=== PATIENT | female | born 1950 ===

== ENCOUNTER 2017-12-05 16:32 | Emergency (ER) | payer MEDICARE ==
[2017-12-05 16:33] VITALS: BMI 31.9
[2017-12-05 16:39] VITALS: BP 123/65; RESP 18; TEMP 98.7
[2017-12-05 17:25] LABS: BASO # 0.05 K/mm3 (0.0-2.0); BASO % 0.8 % (0.0-3.0); EOS # 0.2 (0.0-0.7); EOS % 3.9 % (1.5-5.0); GRAN # 3.02 (1.4-6.5); GRAN % 48.9 % (50.0-68.0); HEMOGLOBIN 12.9 g/dL (12.0-16.0); LYMPH # 2.4 (1.2-3.4); LYMPH % 38.6 % (22.0-35.0); MEAN CELL VOLUME 89.3 fl (80.0-105.0); MEAN CORPUSCULAR HEMOGLOBIN 29.9 pg (25.0-35.0); MEAN CORPUSCULAR HGB CONC 33.5 g/dl (31.0-37.0); MEAN PLATELET VOLUME 11.7 fl (7.0-11.0); MONO # 0.5 (0.1-0.6); MONO % 7.8 % (1.0-6.0); PH,URINE 6.5 (4.7-8.0); RBC 4.31 10^6/uL (3.5-6.1); RED CELL DISTRIBUTION WIDTH 14.3 % (11.5-14.5); URINE BILIRUBIN NEGATIVE (NEGATIVE); URINE BLOOD TRACE-INTACT (NEGATIVE); URINE GLUCOSE (UA) NEGATIVE (NEGATIVE); URINE LEUKOCYTE ESTERASE NEGATIVE Leu/uL (NEGATIVE); URINE PROTEIN NEGATIVE mg/dL (<30 mg/dL); WHITE BLOOD COUNT 6.2 10^3/ul (4.5-11.0)
[2017-12-05 17:27] LABS: URINE APPEARANCE CLEAR (CLEAR); URINE COLOR YELLOW (YELLOW)
[2017-12-05 17:33] LABS: ALB/GLOB RATIO 1.4 (1.1-1.8); ALBUMIN 4.2 g/dL (3.0-4.8); ALT/SGPT 29 U/L (7-56); AST/SGOT 28 U/L (14-36); BLOOD UREA NITROGEN 15 mg/dL (7-21); CALCIUM 8.9 mg/dL (8.4-10.5); GFR AFRICAN-AMERICAN > 60; GFR NON-AFRICAN AMERICAN > 60
[2017-12-05 18:05] LABS: URINE BACTERIA TRACE (NEG); URINE EPITHELIAL CELLS 0 - 2 /hpf (0-5); URINE RBC 0 - 2 /hpf (0-2); URINE WBC 0 - 2 /hpf (0-6)
--- NOTE | 2017-12-05 18:44 | CT ---
PROCEDURE: CT HEAD WITHOUT CONTRAST. HISTORY: headache COMPARISON: None available. TECHNIQUE: Axial computed tomography images were obtained through the head/brain without intravenous contrast. Radiation dose: Total exam DLP = 830.77 mGy-cm. This CT exam was performed using one or more of the following dose reduction techniques: Automated exposure control, adjustment of the mA and/or kV according to patient size, and/or use of iterative reconstruction technique. FINDINGS: HEMORRHAGE: No intracranial hemorrhage. BRAIN: No mass effect or edema. No atrophy or chronic microvascular ischemic changes. VENTRICLES: Unremarkable. No hydrocephalus. CALVARIUM: Unremarkable. PARANASAL SINUSES: Unremarkable as visualized. No significant inflammatory changes. MASTOID AIR CELLS: Unremarkable as visualized. No inflammatory changes. OTHER FINDINGS: None. IMPRESSION: No intracranial mass, hemorrhage or evidence of acute infarct. If
--- NOTE | 2017-12-05 18:56 | ED PDOC ---
Arrival/HPI - General Chief Complaint: Trauma Time Seen by Provider: 12/05/17 16:54 Historian: Patient - History of Present Illness Narrative History of Present Illness (Text): 12/05/17 18:43 67yr old female presents today with headache and feeling drowsy after head injury 2 days ago. pt states she Slipped and fell on water hitting her head 2 days ago. Patient states she was feeling fine at that time but then slowly developed headaches and states that she injured her left shoulder. Patient states she was in [place] so she did not go to the hospital. Patient states she returned yesterday and today she developed a feeling like if she wanted to sleep. Patient does state that she did take a muscle relaxer in the morning today because she was having pain in the left shoulder. Patient states she has a history of prior surgery in the left arm/shoulder and when she fell backwards she injured the shoulder and now is having difficulty lifting the shoulder up above her head. pt denies numbness weakness, tingling in the extremity. pt denies cp or sob. no fever/chills. no abdominal pain. pt denies back pain. no other complaints. Time/Duration: Other (2 days ago) Past Medical History - Provider Review Nursing Documentation Reviewed: Yes - Travel History Have you recently traveled outside [place] w/in the past 3 mons?: No - Infectious Disease Hx of Infectious Diseases: None - Tetanus Immunization Tetanus Immunization: Unknown - Cardiac Hx Cardiac Disorders: Yes Hx Hypertension: Yes - Pulmonary Hx Respiratory Disorders: No - Neurological Hx Neurological Disorder: No - HEENT Hx HEENT Disorder: No - Renal Hx Renal Disorder: No - Endocrine/Metabolic Hx Endocrine Disorders: No - Hematological/Oncological Hx Blood Disorders: No - Integumentary Hx Dermatological Disorder: No - Musculoskeletal/Rheumatological Hx Musculoskeletal Disorders: No - Gastrointestinal Hx Gastrointestinal Disorders: Yes Hx Gastrointestinal Ulcer: Yes - Genitourinary/Gynecological Hx Genitourinary Disorders: No - Psychiatric Hx Psychophysiologic Disorder: No Hx Depression: No Hx Emotional Abuse: No Hx Physical Abuse: No Hx Substance Use: No - Past Surgical History Past Surgical History: Non-Contributing - Surgical History Hx Appendectomy: Yes Hx Section: Yes Hx Tubal Ligation: Yes - Anesthesia Hx Anesthesia: No Hx Anesthesia Reactions: No Hx Malignant Hyperthermia: No - Suicidal Assessment Feels Threatened In Home Enviroment: No Family/Social History - Physician Review Nursing Documentation Reviewed: Yes Family/Social History: Unknown Family HX Smoking Status: Never Smoked Hx Alcohol Use: No Hx Substance Use: No Hx Substance Use Treatment: No Allergies/Home Meds Allergies/Adverse Reactions: Allergies Tetracyclines Allergy (Verified 04/19/16 01:30) RASH Home Medications: Home Meds Medication Instructions Recorded Confirmed Nebivolol [Bystolic] 10 mg PO DAILY 08/20/15 12/05/17 Cyclobenzaprine [Flexeril] 5 mg PO TID PRN 12/05/17 12/05/17 Hydrochlorothiazide [Microzide] 1 tab PO DAILY 12/05/17 12/05/17 Review of Systems - Review of Systems Constitutional: Fatigue. absent: Fevers ENT: absent: Sore Throat, Sinus Congestion Respiratory: absent: SOB, Cough Cardiovascular: absent: Chest Pain, Palpitations Gastrointestinal: absent: Abdominal Pain, Nausea, Vomiting Genitourinary Female: absent: Dysuria, Frequency, Hematuria Musculoskeletal: Arthralgias (left shoulder pain). absent: Back Pain, Neck Pain Skin: absent: Rash, Pruritis Neurological: Headache Psychiatric: absent: Anxiety, Depression Physical Exam Vital Signs Reviewed: Yes Vital Signs Temp Pulse Resp BP Pulse Ox 12/05/17 16:38 98.7 F 54 L 18 123/65 96 Temperature: Afebrile Blood Pressure: Normal Pulse: Regular Respiratory Rate: Normal Appearance: Positive for: Well-Appearing, Non-Toxic, Comfortable Pain Distress: None Mental Status: Positive for: Alert and Oriented X 3 - Systems Exam Head: Present: Tenderness (+ ttp over posterior scalp). No: Swelling, Ecchymosis, Abrasion, Laceration Pupils: Present: PERRL Extroacular Muscles: Present: EOMI Conjunctiva: Present: Normal Ears: Present: Normal, NORMAL TM Mouth: Present: Moist Mucous Membranes Pharnyx: Present: Normal Nose (External): Present: Atraumatic Neck: Present: Normal Range of Motion, Trachea Midline. No: MIDLINE TENDERNESS , Paraspinal Tenderness Respiratory/Chest: Present: Clear to Auscultation, Good Air Exchange. No: Respiratory Distress, Accessory Muscle Use Cardiovascular: Present: Regular Rate and Rhythm, Normal S1, S2. No: Murmurs Abdomen: No: Tenderness, Distention, Rebound, Guarding Back: Present: Normal Inspection, Other (no ecchymosis, no edema, no erythema, ) . No: CVA Tenderness, Midline Tenderness, Paraspinal Tenderness Upper Extremity: Present: NORMAL PULSES, Tenderness (left shoulder; + ttp over anterior aspect of shoulder; limited abduction; sensation and distal pulses intact. no step offs or crepitus. no edema, no erythema; no ecchymosis; ), Neurovascularly Intact, Capillary Refill < 2s. No: Normal ROM, Swelling, Erythema, Deformity Lower Extremity: Present: Normal Inspection, NORMAL PULSES, Normal ROM Neurological: Present: GCS=15, Speech Normal, Motor Func Grossly Intact, Normal Sensory Function, Gait Normal Skin: Present: Warm, Dry, Normal Color. No: Rashes Psychiatric: Present: Alert, Oriented x 3 Medical Decision Making ED Course and Treatment: 12/05/17 19:14 67-year-old female presents today with headache and fatigue after slip and fall hitting her head 2 days ago pt is alert and oriented in no distress. stable vitals. neurovascularly intact. Ambulates with steady gait CBC within normal limits CMP within normal limits Urinalysis shows trace blood, no gross blood, no red blood cells X-ray of the left shoulder: No fracture or dislocation Chest x-ray: No infiltrate or effusion CAT scan of the head:FINDINGS: HEMORRHAGE: No intracranial hemorrhage. BRAIN: No mass effect or edema. No atrophy or chronic microvascular ischemic changes. VENTRICLES: Unremarkable. No hydrocephalus. CALVARIUM: Unremarkable. PARANASAL SINUSES: Unremarkable as visualized. No significant inflammatory changes. MASTOID AIR CELLS: Unremarkable as visualized. No inflammatory changes. OTHER FINDINGS: None. IMPRESSION: No intracranial mass, hemorrhage or evidence of acute infarct. tylenol given for pain. i discussed all results in depth with patient. advised f/u with pmd, neurologist and orthopedist within the next 2 days. advised immediate return if symptoms worsen,persist or if new symptoms develop. Patient verbalizes understanding of discharge instructions and need for immediate followup. all aspects of this case were discussed the attending of record. impression; head injury, shoulder pain tylenol every 4 hours as needed for pain increase fluids follow up with the primary care physician within the next 2 days follow up with the neurologist within the next 2 days follow up with the orthopedist within the next 2 days. return if symptoms worsen,persist or if new concerning symptoms develop. - Lab Interpretations Lab Results: 12/05/17 17:15 12/05/17 17:15 Lab Results 12/05/17 17:15: Urine Color Yellow, Urine Appearance Clear, Urine pH 6.5, Ur Specific [place] 1.025, Urine Protein Negative, Urine Glucose (UA) Negative, Urine Ketones Trace H, Urine Blood Trace-intact H, Urine Nitrate Negative, Urine Bilirubin Negative, Urine Urobilinogen 1.0 H, Ur Leukocyte Esterase Negative, Urine RBC 0 - 2, Urine WBC 0 - 2, Ur Epithelial Cells 0 - 2, Urine Bacteria Trace 12/05/17 17:15: WBC 6.2 D, RBC 4.31, Hgb 12.9, Hct 38.5, MCV 89.3, MCH 29.9, MCHC 33.5, RDW 14.3, Plt Count 276, MPV 11.7 H, Gran % 48.9 L, Lymph % (Auto) 38.6 H, [place] % (Auto) 7.8 H, Eos % (Auto) 3.9, Baso % (Auto) 0.8, Gran # 3.02, Lymph # (Auto) 2.4, [place] # (Auto) 0.5, Eos # (Auto) 0.2, Baso # (Auto) 0.05 12/05/17 17:15: Sodium 145, Potassium 3.9, Chloride 104, Carbon Dioxide 28, Anion Gap 17, BUN 15, Creatinine 0.7, Est GFR ( Amer) > 60, Est GFR (Non- Af Amer) > 60, Random Glucose 95, Calcium 8.9, Total Bilirubin 0.5, AST 28, ALT 29, Alkaline Phosphatase 62, Total Protein 7.2, Albumin 4.2, Globulin 3.0, Albumin/Globulin Ratio 1.4 - RAD Interpretation Radiology Orders: 12/05/17 16:54 HEAD W/O CONTRAST [CT] Stat 12/05/17 16:55 SHOULDER LEFT [RAD] Stat Disposition/Present on Arrival - Present on Arrival Any Indicators Present on Arrival: No History of DVT/PE: No History of Uncontrolled Diabetes: No Urinary Catheter: No History of Decub. Ulcer: No History Surgical Site Infection Following: None - Disposition Have Diagnosis and Disposition been Completed?: Yes Diagnosis: Head injury, Headache, Shoulder pain Disposition: HOME/ ROUTINE Disposition Time: 19:37 Patient Plan: Discharge Condition: GOOD Discharge Instructions (ExitCare): Closed Head Injury, Shoulder Pain (DC), Concussion in Adults Additional Instructions: tylenol every 4 hours as needed for pain increase fluids follow up with the primary care physician within the next 2 days follow up with the neurologist within the next 2 days follow up with the orthopedist within the next 2 days. return if symptoms worsen,persist or if new concerning symptoms develop. Referrals: Angus Mai MD [Staff Provider] - Follow up with primary Corona He MD [Staff Provider] - Follow up with primary Juve Lombardi MD [Staff Provider] - Follow up with primary Forms: [employer] (Greek)
[2017-12-05 19:52] VITALS: PULSE 86; O2SAT 99
--- NOTE | 2017-12-06 08:24 | RAD ---
HISTORY: fatigue COMPARISON: No prior. FINDINGS: LUNGS: No active pulmonary disease. PLEURA: No significant pleural effusion identified, no pneumothorax apparent. CARDIOVASCULAR: Normal. OSSEOUS STRUCTURES: No significant abnormalities. VISUALIZED UPPER ABDOMEN: Normal. OTHER FINDINGS: None. IMPRESSION: No active disease.
--- NOTE | 2017-12-06 08:24 | RAD ---
PROCEDURE: Radiographs of the Left Shoulder HISTORY: shoulder pain s/p fall COMPARISON: No prior. FINDINGS: BONES: Normal. No fracture. JOINTS: Normal. Glenohumeral and acromioclavicular joints preserved. No osteoarthritis. SOFT TISSUES: Normal. OTHER FINDINGS: None. IMPRESSION: Normal radiographs of the left shoulder.
== END 2017-12-05 19:52 | disposition home or self-care (01) ==
LOC: ED 16:32
DX: S09.90XA Unspecified injury of head, initial encounter (principal); W18.2XXA Fall in (into) shower or empty bathtub, initial encounter; Y92.002 Bathroom of unspecified non-institutional (private) residence as the place of occurrence of the external cause; R51 Headache; M25.512 Pain in left shoulder

== ENCOUNTER 2018-10-15 10:29 | Outpatient (CLI) | payer MEDICARE | END 2018-10-15 10:30 | disposition home or self-care (01) | LOC: RAD 10:29 ==